=== PATIENT | male | born 1970 | race American Indian/Alaskan Native ===

== ENCOUNTER 2017-07-15 19:43 | Emergency (ER) | payer OTHER ==
[2017-07-15 19:53] VITALS: BP 120/75; PULSE 83; RESP 20; TEMP 98.4; O2SAT 98
[2017-07-15] MEDS ORDERED: Tmp-Smz 800 mg-160 mg DS Tab PO STA (20:39)
[2017-07-15] MEDS ORDERED: Oxycodone/Acetaminophen 5/325 mg Tab PO STA (20:40)
[2017-07-15] MEDS ORDERED: Oxycodone/Acetaminophen 5/325 mg Tab ONE (20:48)
[2017-07-15] MEDS ORDERED: Tmp-Smz 800 mg-160 mg DS Tab ONE (20:48)
[2017-07-15] MEDS ORDERED: Bacitracin 500 Units/gm Oint Foilpak UD ONE (21:16)
--- NOTE | 2017-07-15 21:16 | C.PDOC ---
History Of Present Illness 46 y/o male presents to the ED for a wound check. On 07/07, pt went to [facility] for laceration repair after a HVAC duct fell onto his left arm. Patient states he noted some swelling and redness to the area two days after the wound repair, which has gotten progressively worsen with discharge. Pt was not given abx at the time of injury. Patient denies fever, new trauma, or change in sensation. Time Seen by Provider: 07/15/17 20:00 Chief Complaint (Nursing): Abnormal Skin Integrity History Per: Patient History/Exam Limitations: no limitations Onset/Duration Of Symptoms: Days Current Symptoms Are (Timing): Still Present Location Of Injury: Left: Arm Quality Of Symptoms: Swollen, Draining Additional History Per: Patient Past Medical History Reviewed: Historical Data, Nursing Documentation, Vital Signs Vital Signs: Last Vital Signs Temp 98.4 F 07/15/17 19:51 Pulse 83 07/15/17 19:51 Resp 20 07/15/17 19:51 BP 120/75 07/15/17 19:51 Pulse Ox 98 07/15/17 22:30 - Medical History PMH: No Chronic Diseases Surgical History: No Surg Hx Family History: States: Unknown Family Hx - Social History Hx Alcohol Use: Yes Hx Substance Use: No Review Of Systems Constitutional: Negative for: Fever, Chills Skin: Positive for: Other (wound check to left forearm ) Physical Exam - Physical Exam Appears: Non-toxic, No Acute Distress Skin: Warm, Dry, Other (6cm laceration with sutures intact and surrouding erythema and pururlent drainge from wound , no streaking) Head: Atraumatic, Normacephalic Eye(s): bilateral: Normal Inspection, EOMI Nose: Normal Oral Mucosa: Moist Neck: Normal ROM, Supple Chest: Symmetrical Respiratory: No Accessory Muscle Use Extremity: Normal ROM, Capillary Refill (less than 2 seconds ), No Deformity Pulses: Left Radial: Normal, Right Radial: Normal Neurological/Psych: Oriented x3, Normal Speech, Normal Cognition, Normal Sensation ED Course And Treatment O2 Sat by Pulse Oximetry: 98 (on RA) Pulse Ox Interpretation: Normal Progress Note: Bactrim PO, Keflex PO and Percocet PO administered. Discussed with pt sutures will be removed secondary to infected wound, to allow drainage. Pt informed wound may open. Sutures removed. area irrigated, bacitracin applied. Pt was Advised to return for wound check in 2 days or sooner if symptoms persist or worsen. Case discussed with Dr Mccabe, agreed upon plan and treatment. Disposition - Disposition Disposition: HOME/ ROUTINE Disposition Time: 21:14 Condition: STABLE Additional Instructions: Return for wound check in 2 days or sooner if symptoms persist or worsen. Take probiotics with the antibiotics. 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 - Scribe Statement The provider has reviewed the documentation as recorded by the Scribe (Anju Apodaca) All medical record entries made by the Scribe were at my direction and personally dictated by me. I have reviewed the chart and agree that the record accurately reflects my personal performance of the history, physical exam, medical decision making, and the department course for this patient. I have also personally directed, reviewed, and agree with the discharge instructions and disposition.
== END 2017-07-15 21:38 | disposition home or self-care (01) ==
LOC: C.ER 19:43
DX: T81.4XXA Infection following a procedure, initial encounter (principal); Y83.8 Other surgical procedures as the cause of abnormal reaction of the patient, or of later complication, without mention of misadventure at the time of the procedure; Y92.89 Other specified places as the place of occurrence of the external cause

== ENCOUNTER 2017-07-17 19:53 | Emergency (ER) | payer OTHER ==
[2017-07-17 20:25] VITALS: O2SAT 98
--- NOTE | 2017-07-17 20:45 | C.PDOC ---
History Of Present Illness 46 yo male presents to the ED for wound check of the left forearm. Was seen here on 07/15 for suture removal, and instructed to return in 2 days for wound check secondary to wound infection. Patient reports taking antibiotics as prescribed. He notes the redness and swelling have decreased, and the purulent drainage seems improved. Denies any fever or chills. Time Seen by Provider: 07/17/17 20:28 Chief Complaint (Nursing): Wound Check History Per: Patient History/Exam Limitations: no limitations Onset/Duration Of Symptoms: Days Ago Current Symptoms Are (Timing): Still Present Past Medical History Reviewed: Historical Data, Nursing Documentation, Vital Signs Vital Signs: Last Vital Signs Temp 98.3 F 07/17/17 21:02 Pulse 69 07/17/17 21:02 Resp 20 07/17/17 21:02 BP 104/63 07/17/17 21:02 Pulse Ox 98 07/17/17 23:45 Surgical History: No Surg Hx Family History: States: Unknown Family Hx - Social History Hx Tobacco Use: Yes Hx Alcohol Use: Yes Hx Substance Use: No - Immunization History Hx Tetanus Toxoid Vaccination: Yes (07/07/17) Hx Influenza Vaccination: No Review Of Systems Except As Marked, All Systems Reviewed And Found Negative. Constitutional: Negative for: Fever, Chills Skin: Positive for: Other (healing lesion) Physical Exam - Physical Exam Appears: Non-toxic, No Acute Distress Skin: Warm, Dry, Other (6cm healing laceration to the left forearm, with mild discharge to distal end, redness and swelling extends 2cm surrounding wound, 1 suture intact) Head: Atraumatic, Normacephalic Eye(s): bilateral: Normal Inspection, EOMI Nose: Normal Oral Mucosa: Moist Chest: Symmetrical Respiratory: No Accessory Muscle Use, Other (speaking in full sentences) Extremity: Bilateral: Atraumatic, Normal ROM Pulses: Left Radial: Normal, Right Radial: Normal Neurological/Psych: Oriented x3, Normal Speech, Other (No focal deficits) ED Course And Treatment O2 Sat by Pulse Oximetry: 98 (RA) Pulse Ox Interpretation: Normal Progress Note: 1 suture removed by me, tolerated well by patient. Irrigated the area with normal saline. Sterile dressing applied. Patient was seen by me on and wound appears significantly improved on outpatient antibiotic course. Patient is stable for discharge. Advised to continue same treatment plan and return for any worsening symptoms. Disposition Counseled Patient/Family Regarding: Diagnosis, Need For Followup - Disposition Referrals: Non [facility] Provider, [Primary Care Provider] - Disposition: HOME/ ROUTINE Disposition Time: 20:44 Condition: STABLE Additional Instructions: Follow up with PMD in 1-2 days for wound check. Return to ER if symptoms persist or worsen. 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 - Scribe Statement The provider has reviewed the documentation as recorded by the Scribe (Zeina Fleming) All medical record entries made by the Scribe were at my direction and personally dictated by me. I have reviewed the chart and agree that the record accurately reflects my personal performance of the history, physical exam, medical decision making, and the department course for this patient. I have also personally directed, reviewed, and agree with the discharge instructions and disposition.
[2017-07-17 21:03] VITALS: BP 104/63; PULSE 69; RESP 20; TEMP 98.3
== END 2017-07-17 21:43 | disposition home or self-care (01) ==
LOC: C.ER 19:53 → SUPCPDRO 19:53 → C.ER 21:43
DX: Z48.02 Encounter for removal of sutures (principal)

== ENCOUNTER 2018-04-18 22:07 | Emergency (ER) | payer SELFPAY ==
[2018-04-18 22:22] VITALS: O2SAT 100
[2018-04-18] MEDS ORDERED: Sodium Chloride 0.9% 1,000 ML IV ONE (22:30)
[2018-04-18 22:56] LABS: BASO # 0.1 K/uL (0.0-0.2); BASO % 0.9 % (0.0-2.0); EOS % 0.5 % (0.0-4.0); LYMPH # 2.5 K/uL (1.0-4.3); MEAN CELL VOLUME 99.8 fL (80.0-94.0); MEAN CORPUSCULAR HEMOGLOBIN 33.2 pg (27.0-31.0); MEAN CORPUSCULAR HGB CONC 33.3 g/dL (33.0-37.0); MEAN PLATELET VOLUME 7.7 fL (7.2-11.7); MONO # 0.7 K/uL (0.0-0.8); MONO % 11.5 % (0.0-10.0); NEUT # 3.1 K/uL (1.8-7.0); NEUT % 48.1 % (50.0-75.0); NRBC % 0.1 % (0.0-2.0); RBC 4.2 Mil/uL (4.40-5.90); RED CELL DISTRIBUTION WIDTH 13.8 % (11.5-14.5); WHITE BLOOD COUNT 6.5 K/uL (4.8-10.8)
[2018-04-18 22:59] LABS: SQUAMOUS EPITHIAL < 1 /hpf (0-5); URINE BACTERIA RARE (<OCC); URINE BILIRUBIN NEGATIVE (NEGATIVE); URINE BLOOD 1+ (NEGATIVE); URINE CLARITY Clear (Clear); URINE COLOR Yellow (YELLOW); URINE GLUCOSE (UA) NORMAL (Normal); URINE LEUKOCYTE ESTERASE TRACE Leu/uL (Negative); URINE PROTEIN NEGATIVE (NEGATIVE); URINE UROBILINOGEN NORMAL mg/dL (0.2-1.0)
[2018-04-18] MEDS ORDERED: Sodium Chloride 0.9% 1,000 ML ONE (23:02)
[2018-04-18 23:08] LABS: ALB/GLOB RATIO 1.8 (1.0-2.1); ALBUMIN 4.9 g/dL (3.5-5.0); ALT/SGPT 16 U/L (21-72); AST/SGOT 25 U/L (17-59); BLOOD UREA NITROGEN 9 mg/dL (9-20); CALCIUM 9.4 mg/dl (8.6-10.4); GFR NON-AFRICAN AMERICAN > 60; LIPASE 47 U/L (23-300)
--- NOTE | 2018-04-18 23:11 | C.PDOC ---
History Of Present Illness 47 year old male presents to the ED c/o crampy abdominal pain, bloating. Patient states he has been passing gas and having scant bowel movements. Patient states his diet consists of mostly junk food and carbohydrates. Patient denies fever, chills, nausea, vomit, dysuria, hematuria, rash, recent travel, sick contacts. Time Seen by Provider: 04/18/18 22:29 Chief Complaint (Nursing): Abdominal Pain History Per: Patient History/Exam Limitations: no limitations Onset/Duration Of Symptoms: Days Current Symptoms Are (Timing): Still Present Location Of Pain/Discomfort: Diffuse Quality Of Discomfort: "Pain" Associated Symptoms: Constipation. denies: Nausea, Vomiting, Diarrhea Recent travel outside of the [place]: No Additional History Per: Patient Past Medical History Reviewed: Historical Data, Nursing Documentation, Vital Signs Vital Signs: Last Vital Signs Temp 99.1 F 04/18/18 22:09 Pulse 98 H 04/18/18 22:09 Resp 21 04/18/18 22:09 BP 140/99 H 04/18/18 22:09 Pulse Ox 100 04/18/18 22:09 - Medical History Other PMH: chronic constipation Surgical History: No Surg Hx Family History: States: Unknown Family Hx - Social History Hx Tobacco Use: Yes Hx Alcohol Use: Yes Hx Substance Use: Yes - Immunization History Hx Tetanus Toxoid Vaccination: Yes (07/07/17) Hx Influenza Vaccination: No Review Of Systems Constitutional: Negative for: Fever, Chills Cardiovascular: Negative for: Chest Pain Respiratory: Negative for: Shortness of Breath Gastrointestinal: Positive for: Abdominal Pain, Constipation. Negative for: Nausea, Vomiting Genitourinary: Negative for: Dysuria, Hematuria Musculoskeletal: Negative for: Back Pain Skin: Negative for: Rash Neurological: Negative for: Weakness, Numbness Physical Exam - Physical Exam Appears: Non-toxic, No Acute Distress Skin: Normal Color, Warm, Dry Head: Atraumatic, Normacephalic Eye(s): bilateral: Normal Inspection Oral Mucosa: Moist Neck: Normal ROM, Supple Chest: Symmetrical Cardiovascular: Rhythm Regular Respiratory: Normal Breath Sounds, No Rales, No Rhonchi, No Wheezing Gastrointestinal/Abdominal: Bowel Sounds (active), Soft, No Tenderness, No Guarding, No Rebound, Other (tympanic epigastric and dull LLQ) Back: No CVA Tenderness Extremity: Normal ROM, No Tenderness, No Swelling Neurological/Psych: Oriented x3, Normal Speech, Normal Cognition Gait: Steady ED Course And Treatment - Laboratory Results Result Diagrams: 04/18/18 22:52 04/18/18 22:52 Lab Interpretation: Normal (ua neg.) O2 Sat by Pulse Oximetry: 100 (ON RA) Pulse Ox Interpretation: Normal - Radiology CXR: Interpreted by Me CXR Interpretation: Yes: No Acute Disease - Other Rad abd x 2 X-Ray: Interpreted by Me (increased stool and gas) Reassessment Condition: Unchanged Medical Decision Making Medical Decision Making: acute on chronic constipation Disposition Doctor Will See Patient In The: Office Counseled Patient/Family Regarding: Studies Performed, Diagnosis - Disposition Referrals: [facility] [Outside] [email or web address] [Outside] [facility] [Outside] [facility] [Outside] Disposition: HOME/ ROUTINE Disposition Time: 23:12 Condition: GOOD Additional Instructions: drink a laxative now and re-evaluate your abdominal discomfort after using the bathroom 2-3 times diet and exercise changes 7 fresh fruits and vegetables/day drink more water outpatient follow-up in our outpatient Clinic. Instructions: Gas and Bloating (ED) Forms: [email or web address] (Micronesian) - Clinical Impression Clinical Impression: Abdominal colic - Scribe Statement The provider has reviewed the documentation as recorded by the Scribe Jarred Quiroz All medical record entries made by the Scribe were at my direction and personally dictated by me. I have reviewed the chart and agree that the record accurately reflects my personal performance of the history, physical exam, medical decision making, and the department course for this patient. I have also personally directed, reviewed, and agree with the discharge instructions and disposition.
[2018-04-18] MEDS ORDERED: Magnesium Citrate Oral SOL (300 ml) PO ONE (23:14)
[2018-04-18 23:29] VITALS: BP 140/89; PULSE 79; RESP 18; TEMP 98.2
[2018-04-18] MEDS ORDERED: Magnesium Citrate Oral SOL (300 ml) ONE (23:34)
--- NOTE | 2018-04-19 15:31 | RAD ---
Date of service: 04/18/2018 PROCEDURE: Radiographs of the chest and abdomen (obstructive series) HISTORY: Abdominal pain COMPARISON: No prior study available comparison TECHNIQUE: AP radiograph of the chest, with upright and supine radiographs of the abdomen. FINDINGS: CHEST: Lungs: Clear. Cardiovascular: Normal size heart. No pulmonary vascular congestion. No significant aortic atherosclerotic calcification present Pleura: No pleural fluid. No pneumothorax. Other findings: None. ABDOMEN AND PELVIS: Bowel: No evidence of acute mechanical bowel obstruction. Moderate amount stool seen within the cecum, at ascending and distal sigmoid/rectum suggesting fecal retention/constipation sigmoid/rectum. Free air: None. Bones: Unremarkable. Other findings: None. IMPRESSION: Unremarkable radiographs of chest and abdomen. No evidence of mechanical bowel obstruction however findings suggest mild constipation..
== END 2018-04-18 23:46 | disposition home or self-care (01) ==
LOC: C.ER 22:07
DX: R10.84 Generalized abdominal pain (principal)
CPT/HCPCS: 74022; 80053; 81001; 83690; 85025; 96361; 96374; 99284; J1885; J7030